=== PATIENT | female | born 1980 | race Two or more races ===

== ENCOUNTER 2020-10-01 17:49 | Emergency (ER) | payer MEDICAID ==
[2020-10-01] MEDS ORDERED: Sodium Chloride 0.9% 10 ML Syringe FLUSH PRN (18:25)
[2020-10-01] MEDS ORDERED: Albuterol/Ipratropium 3.0-0.5 MG/3 ML Neb Soln NEB ONE (18:26)
[2020-10-01] MEDS ORDERED: methylPREDNISolone Sodium Succinate 125 MG/2 ML SDV IVPUSH ONE (18:26)
--- NOTE | 2020-10-01 19:43 | EDM.PDOC ---
ED HPI GENERAL MEDICAL PROBLEM - General Chief Complaint: Asthma Stated Complaint: SOB CHEST PAIN Time Seen by Provider: 10/01/20 18:09 Source of Information: Reports: Patient, Family History Limitations: Reports: No Limitations - History of Present Illness INITIAL COMMENTS - FREE TEXT/NARRATIVE: The patient presents with shortness of breath, wheezing and tightness in her chest. She has a history of asthma and her breathing is worse. She has no fever or chills but she does have a cough. She has no abdominal pain, nausea or vomiting. These symptoms have been getting worse over the past few days. Onset: Gradual Duration: Day(s): Location: Reports: Chest Quality: Reports: Other (tightness) Severity: Moderate Improves with: Reports: None Worsens with: Reports: None Associated Symptoms: Reports: Chest Pain, Cough, Shortness of Breath. Denies: Fever/Chills, Headaches, Nausea/Vomiting Middle Chest Pain Score (Numeric/FACES): 6 - Related Data Allergies Allergy/AdvReac Type Severity Reaction Status Date / Time No Known Allergies Allergy Verified 10/01/20 18:09 Home Meds: Home Meds Albuterol Sulfate 2.5 mg IH Q6H PRN #15 ampule 10/01/20 [Rx] Albuterol [Proventil HFA] 2 puff INH Q4H PRN #1 inhaler 10/01/20 [Rx] predniSONE [Prednisone] 40 mg PO DAILY #10 tablet 10/01/20 [Rx] Past Medical History Respiratory History: Reports: Asthma - Past Surgical History Female Surgical History: Reports: Section Social & Family History - Tobacco Use Tobacco Use Status *Q: Never Tobacco User Second Hand Smoke Exposure: No - Recreational Drug Use Recreational Drug Use: No ED ROS GENERAL - Review of Systems Review Of Systems: See Below Constitutional: Reports: No Symptoms HEENT: Reports: No Symptoms Respiratory: Reports: Shortness of Breath, Wheezing, Cough Cardiovascular: Reports: Chest Pain Endocrine: Reports: No Symptoms GI/Abdominal: Reports: No Symptoms : Reports: No Symptoms Musculoskeletal: Reports: No Symptoms ED EXAM, GENERAL - Physical Exam Exam: See Below Exam Limited By: No Limitations General Appearance: Alert, No Apparent Distress Ears: Normal External Exam Nose: Normal Inspection Head: Atraumatic, Normocephalic Neck: Normal Inspection Respiratory/Chest: No Respiratory Distress, Decreased Breath Sounds, Wheezing Cardiovascular: Regular Rate, Rhythm, No Edema, No Murmur GI/Abdominal: Soft, Non-Tender, No Organomegaly, No Mass Back Exam: Normal Inspection Course - Vital Signs Last Recorded V/S: Last Vital Signs Temp 97.9 F 10/01/20 18:11 Pulse 123 H 10/01/20 18:11 Resp 24 H 10/01/20 18:11 BP 166/87 H 10/01/20 18:11 Pulse Ox 97 10/01/20 18:26 - Orders/Labs/Meds Orders: Active Orders 24 hr Category Date Time Status Cardiac Monitoring [RC] . DIRECTED Care 10/01/20 18:25 Active Peripheral IV Care [RC] . DIRECTED Care 10/01/20 18:26 Active RT Aerosol Therapy [RC] ASDIRECTED Care 10/01/20 18:26 Active Sodium Chloride 0.9% [Saline Flush] Med 10/01/20 18:25 Active 10 ml FLUSH ASDIRECTED PRN Peripheral IV Insertion Adult [OM.PC] Stat Oth 10/01/20 18:25 Ordered Medication Orders Sodium Chloride (Sodium Chloride 0.9% 10 Ml Syringe) 10 ml FLUSH ASDIRECTED PRN PRN Reason: Keep Vein Open Last Admin: 10/01/20 18:53 Dose: 10 ml Documented by: FERN Labs: Laboratory Tests 10/01/20 10/01/20 Range/Units 18:50 18:50 WBC 6.22 (3.98-10.04) K/mm3 RBC 4.83 (3.98-5.22) M/mm3 Hgb 9.1 L (11.2-15.7) gm/dl Hct 30.9 L (34.1-44.9) % MCV 64.0 L (79.4-94.8) fl MCH 18.8 L (25.6-32.2) pg MCHC 29.4 L (32.2-35.5) g/dl RDW Std Deviation 43.6 (36.4-46.3) fL Plt Count 342 (182-369) K/mm3 MPV 8.9 L (9.4-12.3) fl Neut % (Auto) 75.7 H (34.0-71.1) % Lymph % (Auto) 10.1 L (19.3-51.7) % Pike % (Auto) 11.3 (4.7-12.5) % Eos % (Auto) 1.8 (0.7-5.8) Baso % (Auto) 0.6 (0.1-1.2) % Neut # (Auto) 4.71 (1.56-6.13) K/mm3 Lymph # (Auto) 0.63 L (1.18-3.74) K/mm3 Pike # (Auto) 0.70 H (0.24-0.36) K/mm3 Eos # (Auto) 0.11 (0.04-0.36) K/mm3 Baso # (Auto) 0.04 (0.01-0.08) K/mm3 Sodium 130 L (136-145) mEq/L Potassium 3.9 (3.5-5.1) mEq/L Chloride 97 L (98-107) mEq/L Carbon Dioxide 23 (21-32) mEq/L Anion Gap 13.9 (5-15) BUN 10 (7-18) mg/dL Creatinine 0.7 (0.55-1.02) mg/dL Est Cr Clr Drug Dosing 95.17 mL/min Estimated GFR (MDRD) > 60 (>60) mL/min BUN/Creatinine Ratio 14.3 (14-18) Glucose 344 H (70-99) mg/dL Calcium 8.1 L (8.5-10.1) mg/dL Total Bilirubin 0.3 (0.2-1.0) mg/dL AST 19 (15-37) U/L ALT 31 (14-59) U/L Alkaline Phosphatase 114 (46-116) U/L Total Protein 7.5 (6.4-8.2) g/dl Albumin 3.2 L (3.4-5.0) g/dl Globulin 4.3 gm/dL Albumin/Globulin Ratio 0.7 L (1-2) Meds: Medications Generic Name Dose Route Start Last Admin Trade Name Freq PRN Reason Stop Dose Admin Sodium Chloride 10 ml 10/01/20 18:25 10/01/20 18:53 Sodium Chloride 0.9% 10 Ml Syringe FLUSH 10 ml ASDIRECTED PRN Administration Keep Vein Open Discontinued Medications Generic Name Dose Route Start Last Admin Trade Name Freq PRN Reason Stop Dose Admin Albuterol/Ipratropium 3 ml 10/01/20 18:26 10/01/20 18:33 Albuterol/Ipratropium 3.0-0.5 Mg/3 Ml Neb Soln NEB 10/01/20 18:27 3 ml ONETIME ONE Administration Methylprednisolone Sodium Succinate 125 mg 10/01/20 18:26 10/01/20 18:52 Methylprednisolone Sodium Succinate 125 Mg/2 Ml Sdv IVPUSH 10/01/20 18:27 125 mg ONETIME ONE Administration - Re-Assessments/Exams Free Text/Narrative Re-Assessment/Exam: 10/01/20 19:42 I ordered an IV saline lock, solu-medrol 125mg IV, duoneb, CXR and labs. Her CXR looks good. Her WBC is normal. Her Hgb was low at 9.1. Her Na was low at 130. 10/01/20 19:49 The patient feels better. I will get her on albuterol neb and inhaler and prednisone. She says she gets heavy menstrual periods and that is what she thought was the cause of the anemia. This will need to be worked up as an outpatient. Departure - Departure Time of Disposition: 19:50 Disposition: Home, Self-Care 01 Condition: Good Clinical Impression: Anemia Qualifiers: Anemia type: other cause Other causes of anemia: other cause, not classified Qualified Code(s): D64.89 - Other specified anemias Asthma exacerbation Qualifiers: Asthma severity: mild Asthma persistence: intermittent Qualified Code(s): J45.21 - Mild intermittent asthma with (acute) exacerbation - Discharge Information *PRESCRIPTION DRUG MONITORING PROGRAM REVIEWED*: Not Applicable *COPY OF PRESCRIPTION DRUG MONITORING REPORT IN PATIENT OSCAR: Not Applicable Prescriptions: Albuterol Sulfate 2.5 mg IH Q6H PRN #15 ampule PRN Reason: Wheezing predniSONE [Prednisone] 40 mg PO DAILY #10 tablet Albuterol [Proventil HFA] 2 puff INH Q4H PRN #1 inhaler PRN Reason: Shortness Of Breath Referrals: PCP,None [Primary Care Provider] - Kimberly Box MD [Physician] - 1 Week Forms: ED Department Discharge Additional Instructions: Take the prednisone daily for 5 days. Use either the albuterol inhaler or nebulizer every 6 hours as needed for wheezing and shortness of breath. Follow up with Dr Box within a week. Please return if you are worse. Sepsis Event Note (ED) - Evaluation Sepsis Screening Result: No Definite Risk - Focused Exam Vital Signs: Vital Signs Temp Pulse Resp BP Pulse Ox Pulse Ox 10/01/20 18:26 97 10/01/20 18:11 97.9 F 123 H 24 H 166/87 H 96 - My Orders Last 24 Hours: My Active Orders 10/01/20 18:25 Cardiac Monitoring [RC] . DIRECTED Sodium Chloride 0.9% [Saline Flush] 10 ml FLUSH ASDIRECTED PRN Peripheral IV Insertion Adult [OM.PC] Stat 10/01/20 18:26 Peripheral IV Care [RC] . DIRECTED RT Aerosol Therapy [RC] ASDIRECTED - Assessment/Plan Last 24 Hours: My Active Orders 10/01/20 18:25 Cardiac Monitoring [RC] . DIRECTED Sodium Chloride 0.9% [Saline Flush] 10 ml FLUSH ASDIRECTED PRN Peripheral IV Insertion Adult [OM.PC] Stat 10/01/20 18:26 Peripheral IV Care [RC] . DIRECTED RT Aerosol Therapy [RC] ASDIRECTED
--- NOTE | 2020-10-01 19:46 | CR ---
Chest: Frontal view of the chest was obtained. Comparison: No prior chest imaging is available. Heart size and mediastinum are normal. Lungs are clear with no acute parenchymal change. No acute osseous abnormality is appreciated. Impression: 1. Nothing acute is seen on frontal chest x-ray. Diagnostic code #1
== END 2020-10-01 20:16 | disposition home or self-care (01) ==
LOC: JD.ED 17:49
DX: J45.21 Mild intermittent asthma with (acute) exacerbation (principal); D64.89 Other specified anemias
CPT/HCPCS: 36415; 71045; 80053; 85025; 94640; 96374; 99285; J2930; 99284; J7620-GY

== ENCOUNTER 2021-06-18 15:25 | Inpatient (IN) | payer MEDICAID ==
[2021-06-18] MEDS ORDERED: Sodium Chloride 0.9% 10 ML Syringe FLUSH PRN (15:51)
[2021-06-18] MEDS ORDERED: Sodium Chloride 0.9% 1,000 ML IV STA (16:00)
[2021-06-18] MEDS ORDERED: Ondansetron 4 MG/2 ML SDV IVPUSH ONE (16:00)
[2021-06-18] MEDS ORDERED: HYDROmorphone 0.5 MG/0.5 ML Syringe IVPUSH ONE ×2 (16:00→17:12)
[2021-06-18] MEDS ORDERED: Ketorolac 30 MG/ML SDV IVPUSH ONE (16:05)
[2021-06-18] MEDS ORDERED: Ondansetron 4 MG Tab.DIS PO PRN (18:40)
[2021-06-18] MEDS ORDERED: Ketorolac 15 MG/ML SDV IVPUSH SCH (18:45)
[2021-06-18] MEDS: HYDROmorphone 0.5 MG/0.5 ML Syringe IVPUSH PRN ×2 (20:10→22:49)
[2021-06-18] MEDS: Insulin Lispro 100 Unit/ML 3 ML KwikPen SUBCUT SCH (20:44)
[2021-06-18] MEDS: Ketorolac 15 MG/ML SDV IVPUSH SCH (22:08)
[2021-06-18] MEDS: Lactated Ringers 1,000 ML IV SCH (22:45)
[2021-06-19] MEDS: HYDROmorphone 0.5 MG/0.5 ML Syringe IVPUSH PRN ×4 (00:50→19:37)
[2021-06-19] MEDS: Ketorolac 15 MG/ML SDV IVPUSH SCH ×4 (04:10→22:24)
[2021-06-19] MEDS: Lactated Ringers 1,000 ML IV SCH ×3 (06:35→22:29)
[2021-06-19 06:40] LABS: HEMOGLOBIN A1C 10.2 %
[2021-06-19] MEDS: Insulin Lispro 100 Unit/ML 3 ML KwikPen SUBCUT SCH ×6 (08:31→20:35)
[2021-06-19] MEDS ORDERED: Insulin Lispro 100 Unit/ML 3 ML KwikPen SUBCUT ONE (14:15)
[2021-06-19] MEDS ORDERED: Albuterol 0.083% 2.5 MG/3 ML Neb Soln INH PRN (14:33)
[2021-06-19] MEDS ORDERED: Albuterol 6.7 GM Inhaler INH PRN (14:33)
[2021-06-19] MEDS ORDERED: Insulin Glargine,Human Rec. Analog 100 Units/ML 3 ML Pen SUBCUT SCH ×2 (21:00)
[2021-06-20] MEDS ORDERED: Sodium Chloride 0.9% 10 ML Syringe FLUSH PRN (00:01)
[2021-06-20] MEDS: Sodium Chloride 0.9% 10 ML Syringe FLUSH SCH ×2 (00:10→11:46)
[2021-06-20] MEDS ORDERED: Insulin Lispro 100 Unit/ML 3 ML KwikPen SUBCUT ONE ×2 (01:52→15:30)
[2021-06-20] MEDS: Lactated Ringers 1,000 ML IV SCH (05:09)
[2021-06-20] MEDS: Ketorolac 15 MG/ML SDV IVPUSH SCH ×2 (05:09→11:32)
[2021-06-20] MEDS ORDERED: Lactated Ringers 1,000 ML IV SCH ×2 (06:00→11:22)
[2021-06-20] MEDS ORDERED: Lidocaine 1%/Sod Bicarbonate in NS 8.4% 1 ML Syringe IDERM PRN (06:00)
[2021-06-20] MEDS ORDERED: ceFAZolin 2 GM in Sodium Chloride 0.9% 50 ML IV ONE (07:00)
[2021-06-20] MEDS ORDERED: Rocuronium 50 MG/5 ML Vial ONE (07:07)
[2021-06-20] MEDS ORDERED: fentaNYL 250 MCG/5 ML SDV ONE ×2 (07:07→08:37)
[2021-06-20] MEDS ORDERED: Lidocaine 1% 4 ML ONE (07:07)
[2021-06-20] MEDS ORDERED: Propofol 200 MG/20 ML SDV ONE (07:07)
[2021-06-20] MEDS ORDERED: Midazolam 1 MG/ML 2 ML SDV ONE (07:07)
[2021-06-20] MEDS ORDERED: Ondansetron 4 MG/2 ML SDV ONE (07:07)
[2021-06-20] MEDS: Insulin Lispro 100 Unit/ML 3 ML KwikPen SUBCUT SCH ×8 (07:15→21:29)
[2021-06-20] MEDS ORDERED: Bupivacaine 0.5% 30 ML SDV ONE (07:17)
[2021-06-20] MEDS ORDERED: Albuterol 0.083% 2.5 MG/3 ML Neb Soln NEB ONE (07:30)
[2021-06-20] MEDS ORDERED: Ondansetron 4 MG/2 ML SDV IVPUSH PRN (08:12)
[2021-06-20] MEDS ORDERED: fentaNYL 100 MCG/2 ML SDV IVPUSH PRN (08:12)
[2021-06-20] MEDS ORDERED: ceFAZolin 1 GM Vial ONE (08:13)
[2021-06-20] MEDS ORDERED: Dexamethasone 4 MG/ML 5 ML MDV ONE (08:15)
[2021-06-20] MEDS ORDERED: Lactated Ringers 1,000 ML ONE ×2 (08:24→08:27)
[2021-06-20] MEDS ORDERED: HYDROmorphone 0.5 MG/0.5 ML Syringe ONE (08:31)
[2021-06-20] MEDS ORDERED: Ketamine 500 mg/10 ML MDV ONE (08:35)
[2021-06-20] MEDS ORDERED: MAGNESIUM SULFATE 1 GM PO SCH (09:00)
[2021-06-20] MEDS: HYDROmorphone 0.5 MG/0.5 ML Syringe IVPUSH PRN ×7 (10:29→21:23)
[2021-06-20] MEDS ORDERED: Acetaminophen/oxyCODONE 325-5 MG Tab PO PRN (11:22)
[2021-06-20] MEDS: Acetaminophen/oxyCODONE 325-5 MG Tab PO PRN ×2 (12:05→16:07)
[2021-06-20] MEDS: Ibuprofen 600 MG Tab PO SCH ×2 (12:41→17:14)
[2021-06-20] MEDS ORDERED: Albuterol 0.083% 2.5 MG/3 ML Neb Soln INH PRN (13:16)
[2021-06-20] MEDS ORDERED: Albuterol 6.7 GM Inhaler INH PRN (13:16)
[2021-06-20] MEDS: Ondansetron 4 MG/2 ML SDV IVPUSH PRN (15:36)
[2021-06-20] MEDS ORDERED: Insulin Glargine,Human Rec. Analog 100 Units/ML 3 ML Pen SUBCUT SCH (21:00)
[2021-06-20] MEDS: Docusate Sodium 100 MG Cap PO SCH (21:31)
[2021-06-21] MEDS: Ibuprofen 600 MG Tab PO SCH ×4 (00:10→18:52)
[2021-06-21] MEDS: Acetaminophen/oxyCODONE 325-5 MG Tab PO PRN ×5 (00:13→21:07)
[2021-06-21] MEDS: HYDROmorphone 0.5 MG/0.5 ML Syringe IVPUSH PRN ×3 (01:25→15:03)
[2021-06-21] MEDS: Ondansetron 4 MG/2 ML SDV IVPUSH PRN (01:26)
[2021-06-21] MEDS ORDERED: Insulin Lispro 100 Unit/ML 3 ML KwikPen SUBCUT ONE ×2 (07:59→14:47)
[2021-06-21] MEDS: Insulin Lispro 100 Unit/ML 3 ML KwikPen SUBCUT SCH ×7 (08:24→21:04)
[2021-06-21] MEDS: Docusate Sodium 100 MG Cap PO SCH ×2 (08:26→21:07)
[2021-06-21] MEDS ORDERED: Insulin Glargine,Human Rec. Analog 100 Units/ML 3 ML Pen SUBCUT SCH (21:00)
[2021-06-22] MEDS: Ibuprofen 600 MG Tab PO SCH ×5 (00:37→23:52)
[2021-06-22] MEDS: Acetaminophen/oxyCODONE 325-5 MG Tab PO PRN ×6 (00:38→20:48)
[2021-06-22] MEDS: Docusate Sodium 100 MG Cap PO SCH ×2 (08:50→22:10)
[2021-06-22] MEDS: Insulin Lispro 100 Unit/ML 3 ML KwikPen SUBCUT SCH ×7 (08:54→22:15)
[2021-06-22] MEDS ORDERED: Insulin Glargine,Human Rec. Analog 100 Units/ML 3 ML Pen SUBCUT SCH (21:00)
[2021-06-23] MEDS: Acetaminophen/oxyCODONE 325-5 MG Tab PO PRN ×2 (03:32→10:59)
[2021-06-23] MEDS: Ibuprofen 600 MG Tab PO SCH (06:06)
[2021-06-23] MEDS: Insulin Lispro 100 Unit/ML 3 ML KwikPen SUBCUT SCH ×4 (08:41→12:36)
[2021-06-23] MEDS: Docusate Sodium 100 MG Cap PO SCH (11:47)
== END 2021-06-23 11:50 | disposition home or self-care (01) | DRG 742 ==
LOC: JD.ED 15:25 → JD.MS 18:30 → OBSVTOIN 06-19 14:08 → JD.OB 06-22 19:00
PROVIDERS: ADMIT Obstetrics & Gynecology; ATTEND Obstetrics & Gynecology
PROC: 0UT90ZZ Resection of Uterus, Open Approach (ICD-10-PCS; principal; 2021-06-20)
PROC: 0UB70ZZ Excision of Bilateral Fallopian Tubes, Open Approach (ICD-10-PCS; 2021-06-20)
DX: D25.0 Submucous leiomyoma of uterus (principal); I96 Gangrene, not elsewhere classified; N92.1 Excessive and frequent menstruation with irregular cycle; E11.65 Type 2 diabetes mellitus with hyperglycemia; D64.89 Other specified anemias; J45.909 Unspecified asthma, uncomplicated; M19.90 Unspecified osteoarthritis, unspecified site; G89.29 Other chronic pain; M54.9 Dorsalgia, unspecified; M81.0 Age-related osteoporosis without current pathological fracture; Z79.4 Long term (current) use of insulin; Z98.891 History of uterine scar from previous surgery
CPT/HCPCS: 00840; 36415; 80048; 80053; 80061; 82947; 83036; 83735; 84703; 85025; 85027; 86850; 86900; 86901; 94640; 96374; 96375; 96376; 99284-25; A9270-GY; G0378; J0690; J1100; J1170; J1815; J1815-GY; J1885; J2250; J2405; J2704; J2710; J3010; J3490; J7030; J7120

== ENCOUNTER 2021-12-08 14:15 | Emergency (ER) | payer MEDICAID ==
[2021-12-08] MEDS ORDERED: Ondansetron 4 MG/2 ML SDV IVPUSH ONE (15:16)
[2021-12-08] MEDS ORDERED: HYDROmorphone 1 MG/ML Syringe IVPUSH STA (15:16)
[2021-12-08] MEDS ORDERED: Sodium Chloride 0.9% 1,000 ML IV SCH (15:30)
[2021-12-08] MEDS ORDERED: Sodium Chloride 0.9% 10 ML Syringe FLUSH PRN (17:00)
[2021-12-08] MEDS ORDERED: Iopamidol 612 MG/ML 100 ML Bottle IVPUSH ONE (17:00)
[2021-12-08] MEDS ORDERED: HYDROmorphone 0.5 MG/0.5 ML Syringe IVPUSH ONE (17:39)
== END 2021-12-08 20:13 | disposition home or self-care (01) ==
LOC: JD.ED 14:15
DX: N83.202 Unspecified ovarian cyst, left side (principal); K59.09 Other constipation; R59.0 Localized enlarged lymph nodes; J45.909 Unspecified asthma, uncomplicated; E11.9 Type 2 diabetes mellitus without complications; Z79.84 Long term (current) use of oral hypoglycemic drugs; Z98.890 Other specified postprocedural states
CPT/HCPCS: 36415; 74176; 74177; 80053; 81001; 82977; 83690; 85025; 86140; 86304; 96361; 96374; 96375; 96376; 99284; J1170; J2405; J3490; J7030; Q9967

== ENCOUNTER 2021-12-15 17:31 | Emergency (ER) | payer MEDICAID ==
[2021-12-15] MEDS ORDERED: Sodium Chloride 0.9% 10 ML Syringe FLUSH PRN (18:54)
[2021-12-15] MEDS ORDERED: Ondansetron 4 MG/2 ML SDV IVPUSH ONE (18:56)
[2021-12-15] MEDS ORDERED: HYDROmorphone 0.5 MG/0.5 ML Syringe IVPUSH ONE (18:56)
[2021-12-15] MEDS ORDERED: Sodium Chloride 0.9% 1,000 ML IV STA (18:56)
[2021-12-15] MEDS ORDERED: Polyethylene Glycol 3350 Powder 17 GM Packet PO ONE (21:31)
[2021-12-15] MEDS ORDERED: Magnesium Hydroxide 400 MG/5 ML Susp 30 ML Cup PO ONE (21:32)
[2021-12-15] MEDS ORDERED: Ketorolac 30 MG/ML SDV IVPUSH ONE (21:33)
[2021-12-15] MEDS ORDERED: Dicyclomine 10 MG Cap PO ONE (21:33)
[2021-12-15] MEDS ORDERED: Magnesium Hydroxide 400 MG/5 ML Susp 30 ML Cup ONE (22:00)
== END 2021-12-15 22:10 | disposition home or self-care (01) ==
LOC: JD.ED 17:31
DX: R10.11 Right upper quadrant pain (principal); R10.12 Left upper quadrant pain; K59.09 Other constipation; E11.9 Type 2 diabetes mellitus without complications; Z79.899 Other long term (current) drug therapy
CPT/HCPCS: 36415; 74019; 80053; 81001; 82977; 83690; 85025; 86140; 96361; 96374; 96375; 99284; A9270; J1170; J1885; J2405; J3490; J7030

== ENCOUNTER 2021-12-26 02:55 | Emergency (ER) | payer MEDICAID ==
[2021-12-26] MEDS ORDERED: Ondansetron 4 MG/2 ML SDV IVPUSH ONE (03:51)
[2021-12-26] MEDS ORDERED: HYDROmorphone 0.5 MG/0.5 ML Syringe IVPUSH ONE ×3 (03:53→07:10)
[2021-12-26] MEDS ORDERED: Lactated Ringers 1,000 ML IV SCH (04:00)
[2021-12-26] MEDS ORDERED: Sucralfate Suspension 1 GM/10 ML Cup PO ONE (07:42)
[2021-12-26] MEDS ORDERED: Pantoprazole 40 MG Tab.CR PO ONE (08:30)
== END 2021-12-26 08:45 | disposition home or self-care (01) ==
LOC: JD.ED 02:55
DX: R10.13 Epigastric pain (principal); E11.9 Type 2 diabetes mellitus without complications; Z79.84 Long term (current) use of oral hypoglycemic drugs
CPT/HCPCS: 36415; 76705; 80053; 81003; 83690; 84484; 84703; 85007; 85027; 93005; 96361; 96374; 96375; 96376; 99284; A9270; J1170; J2405; J7120